=== PATIENT | female | born 2000 | race Caucasian/White ===

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

== ENCOUNTER 2021-06-15 00:35 | Emergency (ER) | payer OTHER ==
[2021-06-15] MEDS ORDERED: OMNICEF 300 MG300 MG PO (02:30)
[2021-06-15] MEDS ORDERED: PYRIDIUM200 MG PO (02:30)
== END 2021-06-15 02:36 | disposition home or self-care (01) ==
LOC: ER1 00:35
DX: N12 Tubulo-interstitial nephritis, not specified as acute or chronic (principal); R30.0 Dysuria
CPT/HCPCS: 81001; 84703; 96374; 96375; 99284; J0696; J1885